=== PATIENT | male | born 1980 | race Hispanic/Latino ===

== ENCOUNTER → 2018-01-20 | Outpatient (CLI) | payer MEDICARE, OTHER ==
[2018-01-20 16:08] LABS: ABG PH 7.41 (7.31-7.41)
[2018-01-20 16:09] LABS: ABG HCO3 27 mmol/L (23-28); ABG PCO2 42 mmHg (41-51); ABG PO2 61 mmHg (80-105)
== END ==
LOC: RESP 15:36
PROVIDERS: ATTEND Internal Medicine Pulmonary Disease
DX: G47.33 Obstructive sleep apnea (adult) (pediatric) (principal)
CPT/HCPCS: 36415; 82805

== ENCOUNTER → 2018-02-03 | Outpatient (CLI) | payer MEDICARE, OTHER ==
--- NOTE | 2018-02-04 08:25 | Diagnostic Imaging Report ---
History:Chronic nosebleed, 2 to 3 times a day Comparison studies: None Technique: Axial images were obtained through the maxillofacial region. Coronal and sagittal images reconstructed from the axial data. Intravenous contrast: None Findings: Soft tissues: No abnormalities. Bones: No fractures or bone abnormalities. Orbits: Globes: Intact Extra or intraconal abnormalities: None. Paranasal sinuses: 3 mm mucous retention cyst at the right maxillary sinus medial wall IMPRESSION: 1. No significant inflammatory changes of the paranasal sinuses. No finding to explain patient's symptoms Signed by: DR Arsenio Fernandez M.D. on 02/04/2018 8:21 AM
== END ==
LOC: CT 12:53
PROVIDERS: ATTEND Otolaryngology Otolaryngology/Facial Plastic Surgery
DX: J32.0 Chronic maxillary sinusitis (principal)
CPT/HCPCS: 70486

== ENCOUNTER → 2018-02-07 | Outpatient (CLI) | payer MEDICARE, OTHER ==
--- NOTE | 2018-02-07 12:36 | Diagnostic Imaging Report ---
PROCEDURE:CHEST 2 VIEWS TECHNIQUE:PA and lateral chest INDICATION:Low oxygen saturation COMPARISON:Patients [facility], CT, CT CHEST W, 03/15/2017, 11:45. Patients [facility], DX, CHEST 2 VIEWS, 02/12/2017, 16:59. FINDINGS: The lungs are clear and symmetrically inflated. No pleural effusions. Normal heart size, mediastinal contour, and central vasculature. Intact skeleton. CONCLUSION: No acute abnormality or interval change from February 2017. Dictated by: Sae Xie M.D. on 02/07/2018 at 12:40 Electronically approved by: Sae Xie M.D. on 02/07/2018 at 12:40
== END | disposition home or self-care (01) ==
LOC: RAD 12:00
PROVIDERS: ATTEND Surgery
DX: R09.02 Hypoxemia (principal)
CPT/HCPCS: 71046

== ENCOUNTER → 2018-02-17 | Outpatient (CLI) | payer MEDICARE, OTHER ==
--- NOTE | 2018-02-17 11:28 | Diagnostic Imaging Report ---
PROCEDURE:US GALLBLADDER COMPARISON:None. INDICATIONS:RUQ PAIN TECHNIQUE: Deleon-scale and color doppler transverse and longitudinal images of the right upper quadrant of the abdomen were obtained. FINDINGS: Liver: 18.2 cm in right mid-clavicular line. Increased echogenicity. No masses. Main portal vein: 1.1 cm, hepatopetal flow Gallbladder: No stones, sludge, wall thickening, or pericholecystic fluid. Common Bile Duct: 0.5 cm Sonographic Persaud's sign: Negative Right kidney: 13.2 cm. Cortical thickness 1.6 cm. Normal echogenicity. No solid masses, stones or hydronephrosis. Pancreas: The visualized portions of the neck and proximal body are unremarkable. Inferior vena cava: Patent Aorta: Within normal limits Ascites: None in the right upper quadrant of the abdomen. CONCLUSION: 1. Hepatomegaly with diffuse fatty infiltration. No focal lesions. 2. No sonographic evidence of cholelithiasis or cholecystitis. Keron Echavarria M.D. Dictated by: Keron Echavarria M.D. on 02/17/2018 at 11:32 Electronically approved by: Keron Echavarria M.D. on 02/17/2018 at 11:32
== END ==
LOC: RAD 09:50
PROVIDERS: ATTEND Surgery
DX: R10.11 Right upper quadrant pain (principal); R16.0 Hepatomegaly, not elsewhere classified
CPT/HCPCS: 76705

== ENCOUNTER → 2020-08-09 | Outpatient (CLI) | payer MEDICARE, OTHER | LOC: CT 08:23 | PROVIDERS: ATTEND Otolaryngology Otolaryngology/Facial Plastic Surgery | DX: J32.9 Chronic sinusitis, unspecified (principal) | CPT/HCPCS: 70486 ==

== ENCOUNTER → 2020-08-26 | Day surgery (SDC) | payer MEDICARE, OTHER ==
[2020-08-21 09:44] LABS: BASOPHILS # (AUTO) 0.1 (0.0-0.1); BASOPHILS % 0.8 % (0.0-1.0); EOSINOPHILS # (AUTO) 0.1 (0.0-0.4); EOSINOPHILS % 0.6 % (0.0-6.0); HEMOGLOBIN 15.7 g/dL (14.0-18.0); LYMPHOCYTES # (AUTO) 2.2 (1.0-3.2); LYMPHOCYTES % 28.7 % (18.0-39.1); MEAN CORPUSCULAR HEMOGLOBIN 30.3 pg (28-32); MEAN CORPUSCULAR HGB CONC 34.1 g/dL (31-35); MEAN CORPUSCULAR VOLUME 88.8 fL (81-99); MONOCYTES # (AUTO) 0.6 (0.2-0.8); MONOCYTES % 7.5 % (4.4-11.3); NEUTROPHILS # (AUTO) 4.8 (2.1-6.9); NEUTROPHILS % 62.1 % (38.7-80.0); PLATELET COUNT 290 x10e3/uL (140-360); RED BLOOD COUNT 5.18 x10e6/uL (4.3-5.7); RED CELL DISTRIBUTION WIDTH 11.9 % (11.7-14.4)
[2020-08-21 10:06] LABS: ANION GAP 14.6 mmol/L (8-16); BLOOD UREA NITROGEN 15 mg/dL (7-26); BUN/CREATININE RATIO 19 (6-25); CALCIUM 9.1 mg/dL (8.4-10.2); CARBON DIOXIDE 28 mmol/L (22-29); CHLORIDE 105 mmol/L (98-107); CREATININE, SERUM 0.77 mg/dL (0.72-1.25); EST GLOMERULAR FILTRATION RATE > 60 ML/MIN (60-); GLUCOSE 96 mg/dL (74-118); POTASSIUM 3.6 mmol/L (3.5-5.1); SODIUM 144 mmol/L (136-145)
[~2020-08-26] MED LIST: ABILIFY5 MG PO; DEPAKOTE250 MG PO; LIDOCAINE HCL 2% LOCAL INJ 5 ML SDV VIAL INJ ONE; MULTI-VITAMIN1 EACH PO; PROPOFOL IV EMULSION 10 MG/ML 20 ML VIAL ONE
[2020-08-26 10:40] VITALS: BP 117/83
== END | disposition home or self-care (01) ==
LOC: OR 07:40
PROVIDERS: ATTEND Surgery
DX: K62.89 Other specified diseases of anus and rectum (principal); K63.5 Polyp of colon; K57.30 Diverticulosis of large intestine without perforation or abscess without bleeding; G47.33 Obstructive sleep apnea (adult) (pediatric); F43.10 Post-traumatic stress disorder, unspecified; Z88.8 Allergy status to other drugs, medicaments and biological substances; Z01.810 Encounter for preprocedural cardiovascular examination; Z01.812 Encounter for preprocedural laboratory examination; Z20.828 Contact with and (suspected) exposure to other viral communicable diseases; Z80.0 Family history of malignant neoplasm of digestive organs
CPT/HCPCS: 36415; 45380; 45385; 80048; 85025; 88305; 93005; J2001; J2704; U0002; 45378